=== PATIENT | female | born 1985 | race Caucasian/White ===

== ENCOUNTER 2019-04-14 08:51 | Day surgery (SDC) | payer OTHER ==
[2019-04-14] MEDS: CEFAZOLIN 2 GM/50 ML (PMX) 50 ML IVPB (06:00)
[~2019-04-14 08:51] MED LIST: SOD CHLORIDE 0.9% 1,000 ML IV
[2019-04-14 12:07] LABS: ADD MAN DIFF? NO
[2019-04-14 12:12] LABS: WHITE BLOOD COUNT 6.5 10^3/ul (4.8-10.8)
[2019-04-14 12:12] LABS: BASOPHILS % 0.2 % (0.0-2.0); EOSINOPHILS % 0.5 % (0.0-7.0); HEMOGLOBIN 15.3 g/dl (12.0-16.0); LYMPHOCYTES # 1.7 10^3/ul (0.8-2.9); MEAN CORPUSCULAR HEMOGLOBIN 29.9 pg (29.0-33.0); MEAN CORPUSCULAR HGB CONC 33.3 g/dl (32.0-37.0); MEAN CORPUSCULAR VOLUME 89.8 fl (82.0-101.0); MEAN PLATELET VOLUME 11.3 fl (7.4-10.4); MONOCYTE # 0.4 10^3/ul (0.3-0.9); MONOCYTES % 6.5 % (0.0-11.0); NEUTROPHIL # 4.2 10^3/ul (1.6-7.5); NEUTROPHILS % 65.6 % (39.0-77.0); PLATELET COUNT 219 10^3/UL (140-415); RED BLOOD COUNT 5.12 10^6/ul (4.20-5.40)
[2019-04-14 12:39] LABS: ALANINE AMINOTRANSFERASE 35 IU/L (13-69); ALBUMIN 4.9 g/dl (3.3-4.9); ALBUMIN/GLOBULIN RATIO 1.16; ALKALINE PHOSPHATASE 57 IU/L (42-121); ANION GAP 12 (5-13); BILIRUBIN,INDIRECT 0.6 mg/dl (0-1.1); BILIRUBIN,TOTAL 0.6 mg/dl (0.2-1.3); BLOOD UREA NITROGEN 9 mg/dl (7-20); CALCIUM 9.7 mg/dl (8.4-10.2); CARBON DIOXIDE 24 mmol/L (21-31); CHLORIDE 108 mmol/L (97-110); CREATININE 0.67 mg/dl (0.44-1.00); Estimated GFR > 60 mL/min (>60); GLUCOSE 90 mg/dl (70-220); POTASSIUM 4.1 mmol/L (3.5-5.1); SODIUM 144 mmol/L (135-144); TOTAL PROTEIN 9.1 g/dl (6.1-8.1)
[2019-04-14] MEDS ORDERED: PROPOFOL 20 ML (12:43)
[2019-04-14] MEDS ORDERED: CEFAZOLIN 1 GM INJ (12:43)
[2019-04-14] MEDS ORDERED: MIDAZOLAM 1 MG/ML 2 ML INJ (12:43)
[2019-04-14] MEDS ORDERED: HYDROmorphONE 2 MG/ML SYG (12:43)
[2019-04-14] MEDS ORDERED: LIDOCAINE 2% (SDV) 5 ML INJ (12:43)
[2019-04-14 12:49] LABS: ASPARTATE AMINO TRANSFERASE 30 IU/L (15-46)
[2019-04-14 12:53] LABS: INR 0.92; PARTIAL THROMBOPLASTIN TIME 27.2 Sec (23.0-35.0); PROTIME 12.5 Sec (11.9-14.9)
[2019-04-14] MEDS ORDERED: DEXAMETHASONE 4 MG/ML 5 ML INJ (14:07)
[2019-04-14] MEDS ORDERED: ONDANSETRON 4 MG INJ (14:07)
[2019-04-14] MEDS ORDERED: METOCLOPRAMIDE 10 MG INJ (14:07)
[2019-04-14] MEDS: ISOSULFAN BLUE 1% 5 ML INJ SC (14:10)
[2019-04-14] MEDS ORDERED: EPHEDrine 25 MG/5 ML SYG (14:28)
[2019-04-14] MEDS ORDERED: HYDROmorphONE 1 MG/5 ML IV SYRINGE IV (15:00)
[2019-04-14] MEDS ORDERED: LABETALOL HCL 20MG INJ IV (15:00)
[2019-04-14] MEDS ORDERED: MEPERIDINE 25 MG INJ IV (15:00)
[2019-04-14] MEDS ORDERED: OXYCODONE/ACETAMINOPHEN (5/325) TAB PO ×3 (15:00→19:00)
[2019-04-14] MEDS ORDERED: ACETAMINOPHEN 1000MG/100ML IV 100 ML IVPB (15:30)
[2019-04-14] MEDS ORDERED: ONDANSETRON 4 MG INJ IV ×2 (15:30→19:00)
[2019-04-14] MEDS: HYDROmorphONE 1 MG/5 ML IV SYRINGE IV ×3 (15:55→19:22)
[2019-04-14] MEDS: ONDANSETRON 4 MG INJ IV (15:56)
[2019-04-14] MEDS: morphine 2 MG INJ IV (21:04)
[2019-04-14] MEDS: D5W-0.45 NACL + KCL 20 MEQ 1,000 ML IV ×2 (21:20→23:06)
[2019-04-15] MEDS: D5W-0.45 NACL + KCL 20 MEQ 1,000 ML IV ×2 (05:56→15:06)
== END 2019-04-15 17:10 | disposition home or self-care (01) ==
LOC: SDS 08:51 → REC 19:40 → SDS 08:51 → REC 15:07 → MS1 15:51 → SDS 04-15 17:10
DX: C50.911 Malignant neoplasm of unspecified site of right female breast (principal)
CPT/HCPCS: 19301; 80053; 84703; 85025; 85610; 85730; 88307; 88331